=== PATIENT | female | born 1955 | race Caucasian/White ===

== ENCOUNTER 2017-06-16 11:22 | Inpatient (IN) | payer OTHER ==
[~2017-06-16] VITALS: Ht 157.5 cm; Wt 119.3 kg
[~2017-06-16 11:22] MED LIST: ACIDOPHILUS1 EAC5 PO; ACIPHEX20 MG PO; AMBIEN5 MG PO; AMERGE PO; AMITRIPTYLINE H10 MG PO; ANALGESIC325 M1 PO; ASPIRIN EC325 MG PO; CALCIUM ANTAC1000 MG PO; CICLOPIROX30 GM TP; CINNAMON BARK500 MG PO; CRESTOR10 MG PO; DAILY VALUE1 EACH PO; ELAVIL10 MG PO; ELAVIL25 MG PO; ERGOCALCIF50000 UNI1 PO; FLOMAX0.4 MG PO; GLUMETZA500 M1 PO; GLYBURIDE5 MG PO; IBUPROFEN800 MG PO; INDERAL40 MG PO; KLONOPIN0.5 M1 PO; LEVOTHYROXINE100 MCG PO; LIPITOR40 MG PO; LORAZEPAM0.5 MG PO; LYRICA50 MG PO; MAXALT10 MG PO; METFORMIN HCL500 MG PO; MOTRIN800 MG PO; NAPROSYN500 MG PO; OTEZLA30 MG PO; OXYCODONE HCL10 MG PO; PERCOCET 5/31 TABLET PO; PREDNISONE20 MG PO; PREMARIN1.25 MG PO; PROTONIX40 MG PO; REGLAN5 MG PO; RHINOCORT AQUA8.6 G1 IH; ROCALTROL0.5 MCG PO; ROXICODONE5 MG PO; SERTRALINE HCL100 MG PO; SERTRALINE HCL50 MG PO; SYNTHROID150 MCG PO; TRILIPIX135 MG PO; VALIUM5 MG PO; VENTOLIN HFA18 GM IH; VERAPAMIL ER180 MG PO; VERAPAMIL HCL180 MG PO; VITAMIN B-125000 MC1 SL; ZOFRAN4 MG PO
[2017-06-16 11:57] LABS: POINT-OF-CARE METER ID UU13113778
[2017-06-16 12:21] LABS: BASOPHIL COUNT 0.1 K/uL (0-0.1); EOSINOPHIL (%) 2.7 % (0-5); EOSINOPHIL COUNT 0.5 K/uL (0-0.3); HEMATOCRIT 39.4 % (36.0-46.0); IMMATURE GRANULOCYTE (%) 0.5 % (0.0-0.7); IMMATURE GRANULOCYTE COUNT 0.1 K/uL; INSTRUMENT ABS NEUTROPHIL CT 12.9 K/uL; LYMPHOCYTE COUNT 3.3 K/uL (1.0-2.8); MCH 28.1 PG (29.0-34.0); MCHC 32.5 G/DL (30.0-36.0); MCV 86.6 FL (83-99); MEAN PLAT.VOLUME 11.3 uM^3 (9.5-12.4); MONOCYTE COUNT 0.5 K/uL (0-0.8); NEUTROPHIL (%) 74.7 % (45-76); NEUTROPHIL COUNT 12.9 K/uL (1.8-6.4); PLATELET COUNT 166 K/uL (156-360); RBC DIS.WIDTH-CV 14.1 % (11.8-14.6); RBC DIS.WIDTH-SD 45.1 % (39-53); RED BLOOD COUNT 4.55 M/uL (3.80-5.20); WHITE BLOOD COUNT 17.3 K/uL (4.1-10.2)
[2017-06-16 12:33] LABS: CHLORIDE 102 mEq/L (99-109); POTASSIUM 3.5 mEq/L (3.7-5.4); SODIUM 139 mEq/L (136-147)
[2017-06-16 12:34] LABS: GLUCOSE 200 mg/dL (70-99)
[2017-06-16 12:36] LABS: ANION GAP 12 MEQ/L (2-14)
[2017-06-16 12:38] LABS: GFR ESTIMATE (CALCULATED) > 59 mL/min/
[2017-06-16 12:39] LABS: UREA NITROGEN (BUN) 10 mg/dL (9-23)
[2017-06-16 14:28] LABS: TROP-I INTERPRETATION NEGATIVE; TROPONIN-I 0.01 ng/mL (0.0-0.30)
[2017-06-16 16:24] LABS: ADD MIUA? YES; BILIRUBIN NEGATIVE; BLOOD NEGATIVE; COLOR AMBER ((YELLOW)); GLUCOSE (STRIP) NEGATIVE; KETONES NEGATIVE; LEUKOCYTES TRACE; NITRITE NEGATIVE; PROTEIN (STRIP) 100; SPECIFIC GRAVITY 1.016 (1.000-1.030); UROBILINOGEN 0.2 MG/DL (0.2-1.0)
[2017-06-16] MEDS ORDERED: VALIUM5 MG PO (16:48)
[2017-06-16 17:06] LABS: BACTERIA 1+ /HPF; CASTS PRESENT /LPF; CRYSTALS NONE SEEN; EPITHELIAL CELLS 2+ /HPF; HYALINE CASTS 0-5 /LPF; MUCUS 2+ /LPF; RED BLOOD CELLS 0-5 /HPF (0-5); UCUL ADDED? NO; WHITE BLOOD CELLS 0-5 /HPF (0-5)
[2017-06-16 17:10] LABS: ADD MIUA? YES; BILIRUBIN NEGATIVE; BLOOD NEGATIVE; COLOR AMBER ((YELLOW)); GLUCOSE (STRIP) NEGATIVE; KETONES NEGATIVE; LEUKOCYTES TRACE; NITRITE NEGATIVE; PROTEIN (STRIP) 100; SPECIFIC GRAVITY 1.016 (1.000-1.030); UROBILINOGEN 0.2 MG/DL (0.2-1.0)
[2017-06-16 17:13] LABS: BACTERIA 1+ /HPF; CASTS PRESENT /LPF; CRYSTALS NONE SEEN; EPITHELIAL CELLS 2+ /HPF; HYALINE CASTS 0-5 /LPF; MUCUS 2+ /LPF; RED BLOOD CELLS 0-5 /HPF (0-5); WHITE BLOOD CELLS 0-5 /HPF (0-5)
[2017-06-16] MEDS ORDERED: AMLODIPINE BESY10 MG PO (17:19)
[2017-06-16] MEDS ORDERED: METFORMIN HCL1000 MG PO (19:05)
[2017-06-16] MEDS ORDERED: CRANBERRY TABL1 EACH PO (19:15)
[2017-06-16 21:00] VITALS: BP 124/58
[2017-06-16 21:27] LABS: POINT-OF-CARE METER ID UU14174216
[2017-06-17] VITALS (7 sets, daily range): BP systolic 103–141; BP diastolic 51–77
[2017-06-17 00:11] LABS: POINT-OF-CARE METER ID UU14174216
[2017-06-17 05:36] LABS: CHLORIDE 107 mEq/L (99-109); POTASSIUM 3.6 mEq/L (3.7-5.4); SODIUM 140 mEq/L (136-147)
[2017-06-17 05:38] LABS: GLUCOSE 147 mg/dL (70-99)
[2017-06-17 05:40] LABS: ANION GAP 11 MEQ/L (2-14); HEMATOCRIT 32.6 % (36.0-46.0); MCH 28.3 PG (29.0-34.0); MCHC 32.2 G/DL (30.0-36.0); MCV 87.9 FL (83-99); MEAN PLAT.VOLUME 12.1 uM^3 (9.5-12.4); PLATELET COUNT 148 K/uL (156-360); RBC DIS.WIDTH-CV 14.6 % (11.8-14.6); RBC DIS.WIDTH-SD 47.3 % (39-53); RED BLOOD COUNT 3.71 M/uL (3.80-5.20)
[2017-06-17 05:42] LABS: GFR ESTIMATE (CALCULATED) > 59 mL/min/
[2017-06-17 05:43] LABS: UREA NITROGEN (BUN) 14 mg/dL (9-23)
[2017-06-17 05:51] LABS: POINT-OF-CARE METER ID UU13113781
[2017-06-17 11:41] LABS: POINT-OF-CARE METER ID UU14174216
[2017-06-17 17:46] LABS: POINT-OF-CARE METER ID UU13113698
[2017-06-18 00:19] LABS: POINT-OF-CARE METER ID UU14208753
[2017-06-18 03:54] VITALS: BP 121/57
[2017-06-18 08:09] VITALS: BP 144/64
[2017-06-18 09:05] LABS: LYME DISEASE SEROLOGY SCREEN NEGATIVE (NEGATIVE)
[2017-06-18 11:33] LABS: POINT-OF-CARE METER ID UU14188577
[2017-06-18 12:10] VITALS: BP 130/78
[2017-06-18 17:11] VITALS: BP 145/68
[2017-06-18 17:29] LABS: POINT-OF-CARE METER ID UU14117124
[2017-06-18 20:02] VITALS: BP 132/63
[2017-06-18 23:48] VITALS: BP 137/65
[2017-06-19 00:17] LABS: POINT-OF-CARE METER ID UU14188577
[2017-06-19 03:54] VITALS: BP 147/69
[2017-06-19 06:24] LABS: POINT-OF-CARE METER ID UU14117124
[2017-06-19 07:53] VITALS: BP 150/67
[2017-06-19 11:59] VITALS: BP 189/86
[2017-06-19 12:40] LABS: POINT-OF-CARE METER ID UU14188577
[2017-06-19 16:49] VITALS: BP 157/68
[2017-06-19 18:23] LABS: POINT-OF-CARE METER ID UU14188577
[2017-06-19 19:43] VITALS: BP 163/71
[2017-06-19 21:57] VITALS: BP 162/57
[2017-06-19 23:38] LABS: POINT-OF-CARE METER ID UU14188577
[2017-06-20] VITALS (7 sets, daily range): BP systolic 126–158; BP diastolic 56–86
[2017-06-20 05:16] LABS: POINT-OF-CARE METER ID UU14188577
[2017-06-20 08:22] LABS: GFR ESTIMATE (CALCULATED) > 59 mL/min/; UREA NITROGEN (BUN) 24 mg/dL (9-23)
[2017-06-20 11:59] LABS: POINT-OF-CARE METER ID UU14188577
[2017-06-20 15:01] LABS: TROP-I INTERPRETATION NEGATIVE; TROPONIN-I 0.02 ng/mL (0.0-0.30)
[2017-06-20 16:28] LABS: POINT-OF-CARE METER ID UU14188577
[2017-06-20 19:50] LABS: TROP-I INTERPRETATION NEGATIVE; TROPONIN-I 0.02 ng/mL (0.0-0.30)
[2017-06-21 01:40] LABS: POINT-OF-CARE METER ID UU14117124
[2017-06-21 03:30] VITALS: BP 160/84
[2017-06-21 08:21] VITALS: BP 150/68
[2017-06-21 11:23] VITALS: BP 152/62
[2017-06-21 13:11] LABS: HEMATOCRIT 35.1 % (36.0-46.0); MCH 28.2 PG (29.0-34.0); MCHC 32.8 G/DL (30.0-36.0); MEAN PLAT.VOLUME 11.4 uM^3 (9.5-12.4); NRBC (%) 0.1 /100 WBC (0-0); RBC DIS.WIDTH-CV 14.4 % (11.8-14.6); RBC DIS.WIDTH-SD 44.8 % (39-53); RED BLOOD COUNT 4.08 M/uL (3.80-5.20); WHITE BLOOD COUNT 16.4 K/uL (4.1-10.2)
[2017-06-21 13:27] LABS: PLATELET COUNT 239 K/uL (156-360)
[2017-06-21 13:41] LABS: ANION GAP 9 MEQ/L (2-14); CHLORIDE 100 MEQ/L (99-109); GFR ESTIMATE (CALCULATED) > 59 mL/min/; GLUCOSE 181 mg/dL (70-99); MAGNESIUM 1.5 mg/dl (1.3-2.7); POTASSIUM 3.8 MEQ/L (3.7-5.4); SAMPLE HEMOLYSIS CHECK 0; SAMPLE ICTERIC CHECK 0; SAMPLE LIPEMIA CHECK 0; SODIUM 138 MEQ/L (136-147); UREA NITROGEN (BUN) 20 mg/dL (9-23)
[2017-06-21 16:20] VITALS: BP 158/72
[2017-06-21 20:27] VITALS: BP 148/76
[2017-06-22 00:17] LABS: POINT-OF-CARE METER ID UU14208753
[2017-06-22 03:28] VITALS: BP 152/80
[2017-06-22 06:42] LABS: HEMATOCRIT 36.7 % (36.0-46.0); MCH 27.9 PG (29.0-34.0); MCHC 32.7 G/DL (30.0-36.0); MCV 85.3 FL (83-99); MEAN PLAT.VOLUME 11.2 uM^3 (9.5-12.4); PLATELET COUNT 231 K/uL (156-360); RBC DIS.WIDTH-CV 14.3 % (11.8-14.6); WHITE BLOOD COUNT 12.5 K/uL (4.1-10.2)
[2017-06-22 07:14] LABS: ANION GAP 8 MEQ/L (2-14); CHLORIDE 95 MEQ/L (99-109); GFR ESTIMATE (CALCULATED) > 59 mL/min/; SAMPLE HEMOLYSIS CHECK 0; SAMPLE ICTERIC CHECK 0; SAMPLE LIPEMIA CHECK 0; SODIUM 135 MEQ/L (136-147); UREA NITROGEN (BUN) 21 mg/dL (9-23)
[2017-06-22 07:23] LABS: GLUCOSE 305 mg/dL (70-99); POTASSIUM 4.7 MEQ/L (3.7-5.4)
[2017-06-22 07:40] VITALS: BP 162/82
[2017-06-22 11:26] VITALS: BP 128/76
[2017-06-22 11:47] LABS: POINT-OF-CARE METER ID UU14208753
[2017-06-22 17:06] VITALS: BP 122/84
[2017-06-22 20:04] VITALS: BP 145/77
[2017-06-23 00:20] VITALS: BP 166/73
[2017-06-23 00:36] LABS: POINT-OF-CARE METER ID UU14208753
[2017-06-23 04:18] VITALS: BP 165/72
[2017-06-23 06:13] LABS: HEMATOCRIT 37.7 % (36.0-46.0); MCH 27.6 PG (29.0-34.0); MCHC 32.1 G/DL (30.0-36.0); MCV 86.1 FL (83-99); MEAN PLAT.VOLUME 10.9 uM^3 (9.5-12.4); NRBC (%) 0.1 /100 WBC (0-0); PLATELET COUNT 224 K/uL (156-360); RBC DIS.WIDTH-CV 14.1 % (11.8-14.6); RBC DIS.WIDTH-SD 44.2 % (39-53); RED BLOOD COUNT 4.38 M/uL (3.80-5.20); WHITE BLOOD COUNT 14.1 K/uL (4.1-10.2)
[2017-06-23 06:30] LABS: POINT-OF-CARE METER ID UU14208753
[2017-06-23 06:46] LABS: ANION GAP 8 MEQ/L (2-14); CHLORIDE 95 MEQ/L (99-109); GFR ESTIMATE (CALCULATED) > 59 mL/min/; GLUCOSE 171 mg/dL (70-99); SAMPLE HEMOLYSIS CHECK 0; SAMPLE ICTERIC CHECK 0; SAMPLE LIPEMIA CHECK 0; SODIUM 137 MEQ/L (136-147); UREA NITROGEN (BUN) 29 mg/dL (9-23)
[2017-06-23 06:48] LABS: POTASSIUM 3.6 MEQ/L (3.7-5.4)
[2017-06-23 10:02] VITALS: BP 122/74
[2017-06-23] MEDS ORDERED: NYSTATIN15 GM TP (10:26)
[2017-06-23] MEDS ORDERED: LASIX20 MG PO (10:27)
[2017-06-23] MEDS ORDERED: PREDNISONE20 MG PO (10:28)
[2017-06-23 12:07] LABS: POINT-OF-CARE METER ID UU14208753
== END 2017-06-23 13:45 | disposition home or self-care (01) | DRG 545 ==
LOC: EME 11:22 → EDOF 16:51 → ENRESERV 16:52 → EDOF 17:49 → 4EAST 17:49 → EDOF 17:49 → ENRESERV 17:49 → 4EAST 20:55 → ENRESERV 06-17 15:36 → 4EAST 06-17 15:36 → ENRESERV 06-17 15:55 → 3EAST 06-17 22:44
PROVIDERS: Emergency Medicine; Hospitalist; Internal Medicine; Internal Medicine Cardiovascular Disease; Internal Medicine Infectious Disease; Nurse Practitioner Family; Physician Assistant
DX: L40.50 Arthropathic psoriasis, unspecified (principal); R65.10 Systemic inflammatory response syndrome (SIRS) of non-infectious origin without acute organ dysfunction; J96.01 Acute respiratory failure with hypoxia; T38.0X5A Adverse effect of glucocorticoids and synthetic analogues, initial encounter; J81.0 Acute pulmonary edema; M65.89 Other synovitis and tenosynovitis, multiple sites; R07.9 Chest pain, unspecified; E87.6 Hypokalemia; K51.90 Ulcerative colitis, unspecified, without complications; M79.7 Fibromyalgia; R00.0 Tachycardia, unspecified; I95.9 Hypotension, unspecified; D89.9 Disorder involving the immune mechanism, unspecified; I10 Essential (primary) hypertension; E11.43 Type 2 diabetes mellitus with diabetic autonomic (poly)neuropathy; K31.84 Gastroparesis; J45.909 Unspecified asthma, uncomplicated; E78.5 Hyperlipidemia, unspecified; G43.909 Migraine, unspecified, not intractable, without status migrainosus; K44.9 Diaphragmatic hernia without obstruction or gangrene; R68.84 Jaw pain; E66.01 Morbid (severe) obesity due to excess calories; Z68.43 Body mass index [BMI] 50.0-59.9, adult; F32.9 Major depressive disorder, single episode, unspecified; F41.9 Anxiety disorder, unspecified; Z79.82 Long term (current) use of aspirin; Z79.84 Long term (current) use of oral hypoglycemic drugs; Z80.3 Family history of malignant neoplasm of breast; Z90.710 Acquired absence of both cervix and uterus; Z87.442 Personal history of urinary calculi
CPT/HCPCS: 71010; 71020; 71250; 74176; 78582; 80048; 80202; 81003; 82565; 82948; 83605; 83735; 83880; 84484; 84520; 85025; 85027; 85379; 85651; 85730; 86140; 86611 90; 86618; 87040; 93005; 93306; 93970; 94640; 94640 76; 94760; 94799; 99202; 99281; 99285; A9540; A9567; J0692; J1650; J1815; J1940; J2405; J2543; J2920; J2930; J3370; J3480; J7030; J7040; J7050; J7512

== ENCOUNTER 2018-02-07 09:37 | Day surgery (SDC) | payer OTHER ==
[~2018-02-07] VITALS: Ht 157.5 cm; Wt 115.6 kg
[~2018-02-07 09:37] MED LIST changes: +AMLODIPINE BESY10 MG PO; +CRANBERRY TABL1 EACH PO; +JANUVIA100 MG PO; +LASIX20 MG PO; +METFORMIN HCL1000 MG PO; +NYSTATIN15 GM TP
[2018-02-07] MEDS ORDERED: VITAMIN B-625 MG PO (10:00)
[2018-02-07] MEDS ORDERED: KLOR-CON SPRIN10 MEQ PO (10:01)
[2018-02-07 10:02] VITALS: BP 153/70
[2018-02-07] MEDS ORDERED: NORCO 5/3251 TABLET PO (12:22)
[2018-02-07 13:15] VITALS: BP 133/63
[2018-02-07 14:23] VITALS: BP 131/60
== END 2018-02-07 14:23 | disposition home or self-care (01) ==
LOC: SDC 09:37
PROVIDERS: Surgery
PROC: 0JB70ZX Excision of Back Subcutaneous Tissue and Fascia, Open Approach, Diagnostic (ICD-10-PCS; principal; 2018-02-07)
DX: D17.1 Benign lipomatous neoplasm of skin and subcutaneous tissue of trunk (principal); E66.01 Morbid (severe) obesity due to excess calories; Z68.42 Body mass index [BMI] 45.0-49.9, adult; E11.9 Type 2 diabetes mellitus without complications; I10 Essential (primary) hypertension; E78.5 Hyperlipidemia, unspecified; Z90.710 Acquired absence of both cervix and uterus; Z82.49 Family history of ischemic heart disease and other diseases of the circulatory system; Z82.3 Family history of stroke; Z80.7 Family history of other malignant neoplasms of lymphoid, hematopoietic and related tissues; Z80.3 Family history of malignant neoplasm of breast; Z82.0 Family history of epilepsy and other diseases of the nervous system; Z81.1 Family history of alcohol abuse and dependence; Z83.3 Family history of diabetes mellitus; Z88.2 Allergy status to sulfonamides; Z88.8 Allergy status to other drugs, medicaments and biological substances
CPT/HCPCS: 82948; 88304; J0690; J1100; J2250; J2405; J3010; Q0175; S0020

== ENCOUNTER 2018-02-28 05:56 | Day surgery (SDC) | payer OTHER ==
[~2018-02-28] VITALS: Ht 157.5 cm; Wt 117.9 kg
[~2018-02-28 05:56] MED LIST changes: +GLUCOPHAGE1000 MG PO; +KLOR-CON SPRIN10 MEQ PO; +NORCO 5/3251 TABLET PO; +NORVASC10 MG PO; +POTASSIUM-9999 MG PO; -ROXICODONE5 MG PO; +VITAMIN B-625 MG PO
[2018-02-28 07:28] VITALS: BP 134/63
[2018-02-28 15:32] VITALS: BP 143/67
[2018-02-28 16:30] VITALS: BP 137/74
[2018-02-28 17:32] VITALS: BP 126/60
[2018-02-28 19:23] VITALS: BP 92/54
== END 2018-02-28 17:32 | disposition home or self-care (01) ==
LOC: SDC 05:56 → NUC 07:00 → SDC 08:00 → NUC 08:00 → SDC 17:32
PROVIDERS: Surgery
DX: C50.211 Malignant neoplasm of upper-inner quadrant of right female breast (principal); Z17.0 Estrogen receptor positive status [ER+]; G47.33 Obstructive sleep apnea (adult) (pediatric); I10 Essential (primary) hypertension; E11.9 Type 2 diabetes mellitus without complications; E03.9 Hypothyroidism, unspecified; K21.9 Gastro-esophageal reflux disease without esophagitis; E78.00 Pure hypercholesterolemia, unspecified; F41.9 Anxiety disorder, unspecified; E66.01 Morbid (severe) obesity due to excess calories; Z68.42 Body mass index [BMI] 45.0-49.9, adult; Z80.3 Family history of malignant neoplasm of breast; Z88.2 Allergy status to sulfonamides; Z79.84 Long term (current) use of oral hypoglycemic drugs
CPT/HCPCS: 78195; 78999; 82948; 88305; A9541; J0690; J1170; J2405; J2765; J3010; S0020